=== PATIENT | male | born 1960 | race Caucasian/White ===

== ENCOUNTER 2018-05-15 09:58 | Day surgery (SDC) | payer BC ==
[2018-05-14 09:54] LABS: BASOPHILS % (AUTO) 0.5 % (0-1); EOSINOPHILS # (AUTO) 0.2 X10'3 (0-0.9); EOSINOPHILS % (AUTO) 2.7 % (0-6); HEMATOCRIT 46.9 % (42.0-52.0); HEMOGLOBIN 16.2 g/dl (14.0-17.9); LYMPHOCYTES # (AUTO) 2.2 X10'3 (1.1-4.8); MEAN CORPUSCULAR HEMOGLOBIN 30.8 PG (27.0-31.0); MEAN CORPUSCULAR HGB CONC 34.5 g/dL (33.0-36.5); MEAN CORPUSCULAR VOLUME 89.2 FL (78-98); MEAN PLATELET VOLUME 8.7 FL (7.4-10.4); MONOCYTES # (AUTO) 0.5 X10'3 (0-0.9); MONOCYTES % (AUTO) 6.5 % (2-12); NEUTROPHILS # (AUTO) 4.8 X10'3 (1.8-7.7); NEUTROPHILS % (AUTO) 62.3 % (42-75); PLATELET COUNT 250 X10'3 (140-440); RED BLOOD COUNT 5.26 X10'6 (4.70-6.10); RED CELL DISTRIBUTION WIDTH 13.2 % (11.5-14.5); WHITE BLOOD COUNT 7.7 X10'3 (4.5-11.0)
[2018-05-14 10:03] LABS: PARTIAL THROMBOPLASTIN TIME 27 SECONDS (22-32)
[2018-05-14 10:05] LABS: ALBUMIN 3.5 G/DL (3.4-5.0); ANION GAP 8 (8-16); BLOOD UREA NITROGEN 11 MG/DL (7-18); BUN/CREATININE RATIO 12.2 (5.4-32.0); CALCIUM 9.2 MG/DL (8.5-10.1); CHLORIDE 106 MMOL/L (99-107); GLUCOSE 100 MG/DL (70-104); POTASSIUM 4.1 MMOL/L (3.5-5.1); SODIUM 142 MMOL/L (135-145); eGFR 87 ML/MIN
[2018-05-15] VITALS (7 sets, daily range): BP systolic 106–152; BP diastolic 55–87
[~2018-05-15] VITALS: Ht 175.3 cm; Wt 119.2 kg
[2018-05-15] MEDS ORDERED: diphenhydrAMINE 25mg capsule PO PRN (10:20)
[2018-05-15] MEDS ORDERED: acetylcysteine 200 MG/ml 4ml vial PO PRN (10:20)
[2018-05-15] MEDS ORDERED: normal saline 1000ml 1,000 ML IV SCH (10:20)
[2018-05-15] MEDS ORDERED: CARV6.253 PO (10:32)
[2018-05-15] MEDS ORDERED: ISOS30TA6 PO (10:34)
[2018-05-15] MEDS ORDERED: ATOR20TA PO (10:35)
[2018-05-15] MEDS ORDERED: ASPI-1071 PO (10:36)
[2018-05-15] MEDS ORDERED: LIDOcaine/PRILOcaine 5gm cream TP ONE (11:30)
[2018-05-15] MEDS ORDERED: LORazepam 0.5 MG tablet PO PRN (11:30)
[2018-05-15] MEDS ORDERED: nitroGLYCERIN-Tridil 50MG/D5W 250 ML IV ONE (12:06)
[2018-05-15] MEDS ORDERED: verapamil 2.5 mg/ml inj IV ONE (12:06)
[2018-05-15] MEDS ORDERED: iohexol 350 MG/ML 50ML vial IV ONE ×2 (12:07→13:38)
[2018-05-15] MEDS ORDERED: iohexol 350MG/ML 100ml bottle IV ONE ×2 (12:07→13:01)
[2018-05-15] MEDS ORDERED: fentaNYL/PF 50MCG/1 ML 2ML syringe ONE (12:07)
[2018-05-15] MEDS ORDERED: heparin 1,000unit/ml 10ml vial 10 ML ONE ×2 (12:07→13:47)
[2018-05-15] MEDS ORDERED: midazolam 2 mg/2 ml injection ONE (12:07)
[2018-05-15] MEDS ORDERED: LIDOcaine 1% (10mg/ml)w/preservative injection 20ml MDV ONE (12:07)
[2018-05-15] MEDS ORDERED: heparin 25,000 UNIT/250ml bag 250 ML IV ONE (13:13)
[2018-05-15] MEDS ORDERED: atropine 0.1mg/ml 10ml syringe ONE (13:21)
[2018-05-15] MEDS ORDERED: clopidogrel 300mg tablet ONE (13:48)
[2018-05-15 14:36] LABS: ISTAT Hct MIX 42 %PCV (42-52); ISTAT O2 SATURATION MIX VENOUS 59 % (60-80); ISTAT SOURCE MIX
[2018-05-15 14:36] LABS: ISTAT HGB ART 14.6 g/dl (14.0-18.0); ISTAT Hct ART 43 %PCV (42-52); ISTAT O2 SATURATION ARTERIAL 91 % (95-98); ISTAT SOURCE ART
[2018-05-15] MEDS ORDERED: normal saline 1000ml 1,000 ML IV ONE (14:40)
[2018-05-15] MEDS: carvedilol 6.25mg tablet PO SCH (20:10)
[2018-05-15] MEDS ORDERED: atorvastatin 20mg tablet PO SCH (21:00)
[2018-05-16 03:00] VITALS: BP 144/86
[2018-05-16 06:00] VITALS: BP 143/85
--- NOTE | 2018-05-16 06:47 | NUR ---
Patient in room PCU 3010. I have received report from Suzanne TALLEY and had the opportunity to ask questions and assume patient care.
[2018-05-16] MEDS ORDERED: ATOR40TA PO (07:53)
[2018-05-16] MEDS ORDERED: CLOP75TA15 PO (07:53)
[2018-05-16] MEDS ORDERED: ASPI-1 PO (07:55)
[2018-05-16] MEDS ORDERED: clopidogrel 75mg tablet PO SCH (08:00)
[2018-05-16] MEDS ORDERED: isosorbide mononitrate 30mg tab.SR.24H PO SCH (08:00)
[2018-05-16] MEDS ORDERED: aspirin 325mg tablet PO SCH (08:30)
[2018-05-16] MEDS: carvedilol 6.25mg tablet PO SCH (08:45)
[2018-05-16 11:11] VITALS: BP 136/89
[2018-05-16] MEDS ORDERED: verapamil 2.5 mg/ml inj IV ONE (12:05)
[2018-05-16] MEDS ORDERED: nitroGLYCERIN-Tridil 50MG/D5W 250 ML IV ONE (12:05)
[2018-05-16] MEDS ORDERED: iohexol 350 MG/1 ML 200ml bottle ONE (12:05)
[2018-05-16] MEDS ORDERED: heparin 1,000unit/ml 10ml vial 10 ML ONE ×2 (12:05→14:12)
[2018-05-16] MEDS ORDERED: fentaNYL/PF 50MCG/1 ML 2ML syringe ONE (12:05)
[2018-05-16] MEDS ORDERED: midazolam 2 mg/2 ml injection ONE (12:05)
[2018-05-16] MEDS ORDERED: LIDOcaine 1% (10mg/ml)w/preservative injection 20ml MDV ONE (12:06)
--- NOTE | 2018-05-16 12:26 | NUR ---
construction craft laborer at the bedside to take the patient for angiogram
[2018-05-16] MEDS ORDERED: iohexol 350MG/ML 100ml bottle IV ONE (14:20)
[2018-05-16] MEDS ORDERED: clopidogrel 300mg tablet ONE (14:47)
[2018-05-16 15:15] VITALS: BP 136/73
[2018-05-16] MEDS ORDERED: HYDROcodone/acetaminophen 5mg/325mg tablet PO PRN (15:25)
[2018-05-16] MEDS ORDERED: normal saline 1000ml 1,000 ML IV SCH (15:25)
[2018-05-16] MEDS ORDERED: HYDROcodone/acetaminophen 10/325mg tab PO PRN (15:25)
--- NOTE | 2018-05-16 16:44 | NUR ---
removed radial cuff, no bleeding, applied dressing
--- NOTE | 2018-05-16 18:10 | NUR ---
Patient in room PCU 3010. I have received report from Donna TALLEY and had the opportunity to ask questions and assume patient care.
== END 2018-05-16 20:27 | disposition home or self-care (01) ==
LOC: SSTAY O 09:58 → PCU 3S 14:26 → SSTAY O 05-16 20:27
PROVIDERS: ATTEND Internal Medicine Cardiovascular Disease
DX: I25.119 Atherosclerotic heart disease of native coronary artery with unspecified angina pectoris (principal); I10 Essential (primary) hypertension; E78.5 Hyperlipidemia, unspecified; J44.9 Chronic obstructive pulmonary disease, unspecified; Z82.49 Family history of ischemic heart disease and other diseases of the circulatory system; F17.200 Nicotine dependence, unspecified, uncomplicated
CPT/HCPCS: 36415; 80048; 82803; 85014; 85025; 85347; 85610; 85730; 93005; 93460; 99152; 99153; A6257; C1874; C9600; J0461; J1644; J2001; J2250; J3010; J7030; Q0163; Q9967; A4620; C1725; C1769; C9601; G0378; J3490

== ENCOUNTER 2019-06-12 18:01 | Inpatient (IN) | payer BC ==
[~2019-06-12] VITALS: Ht 175.3 cm; Wt 110.0 kg
[~2019-06-12 18:01] MED LIST: ASPI-1 PO; ATOR40TA PO; CARV6.253 PO; CLOP75TA15 PO
[2019-06-12] MEDS ORDERED: diltiazem 5mg/ml 5ml inj. IV ONE ×2 (18:25→20:25)
[2019-06-12] MEDS ORDERED: enoxaparin 100mg/ml syringe SUBCUT ONE (18:25)
[2019-06-12] MEDS ORDERED: magnesium 2GM in 50ml NS 50 ML IV ONE (18:30)
[2019-06-12] MEDS ORDERED: normal saline 1000ML IV soln IVB ONE (18:30)
[2019-06-12 18:38] LABS: BASOPHILS # (AUTO) 0.1 X10'3 (0-0.2); BASOPHILS % (AUTO) 0.7 % (0-1); EOSINOPHILS # (AUTO) 0.2 X10'3 (0-0.9); EOSINOPHILS % (AUTO) 2.1 % (0-6); HEMATOCRIT 48.1 % (42.0-52.0); HEMOGLOBIN 16.3 g/dl (14.0-17.9); LYMPHOCYTES # (AUTO) 2.7 X10'3 (1.1-4.8); LYMPHOCYTES % (AUTO) 23.8 % (21-51); MEAN CORPUSCULAR HEMOGLOBIN 31.2 PG (27.0-31.0); MEAN CORPUSCULAR HGB CONC 33.8 g/dL (33.0-36.5); MEAN CORPUSCULAR VOLUME 92.4 FL (78-98); MEAN PLATELET VOLUME 9.1 FL (7.4-10.4); MONOCYTES # (AUTO) 0.8 X10'3 (0-0.9); MONOCYTES % (AUTO) 6.8 % (2-12); NEUTROPHILS # (AUTO) 7.4 X10'3 (1.8-7.7); NEUTROPHILS % (AUTO) 66.6 % (42-75); PLATELET COUNT 254 X10'3 (140-440); RED BLOOD COUNT 5.21 X10'6 (4.70-6.10); RED CELL DISTRIBUTION WIDTH 13.4 % (11.5-14.5); WHITE BLOOD COUNT 11.2 X10'3 (4.5-11.0)
[2019-06-12 18:54] LABS: D-DIMER 0.78 MG/L FEU (0-0.50)
[2019-06-12 18:58] LABS: ALANINE AMINOTRANSFERASE 86 U/L (12-78); ALBUMIN 3.5 G/DL (3.4-5.0); ALKALINE PHOSPHATASE 91 IU/L (46-116); ANION GAP 8 (8-16); ASPARTATE AMINO TRANSFERASE 26 U/L (10-37); BILIRUBIN,TOTAL 0.7 MG/DL (0.1-1.0); BLOOD UREA NITROGEN 10 MG/DL (7-18); BUN/CREATININE RATIO 10.1 (5.4-32.0); CALCIUM 8.6 MG/DL (8.5-10.1); CHLORIDE 108 MMOL/L (99-107); CREATININE 0.99 MG/DL (0.60-1.10); GLUCOSE 91 MG/DL (70-104); SODIUM 143 MMOL/L (135-145); TOTAL CARBON DIOXIDE 27.3 MMOL/L (24-32); TOTAL PROTEIN 7.1 G/DL (6.4-8.2); eGFR 77 ML/MIN
[2019-06-12] MEDS ORDERED: iohexol 350MG/ML 100ml bottle IV ONE (19:27)
[2019-06-12] MEDS ORDERED: diltiazem 30mg tablet PO ONE (20:25)
[2019-06-12] MEDS ORDERED: furosemide 10 MG/1 ML 10ml inj IV ONE (20:40)
[2019-06-12] MEDS ORDERED: SOTA80TA PO (20:54)
[2019-06-12] MEDS ORDERED: APIX5TAB3 PO (20:54)
[2019-06-12] MEDS ORDERED: mag hydrox/Alum hydrox/simeth 30ml oral suspension PO PRN (21:50)
[2019-06-12] MEDS ORDERED: potassium Cl 20 mEq SR tablet PO PRN ×2 (21:50)
[2019-06-12] MEDS ORDERED: ondansetron/PF 4mg/2ml inj IV PRN (21:50)
[2019-06-12] MEDS ORDERED: potassium CL 10mEq/100ml bag 100 ML IV PRN ×2 (21:50)
[2019-06-12] MEDS ORDERED: ipratropium/albuterol 3ml nebule NEB PRN (21:50)
[2019-06-12] MEDS ORDERED: magnesium 4gm in 100ml NS 100 ML IV PRN (21:50)
[2019-06-12] MEDS ORDERED: magnesium hydroxide 30ml (MOM) UD suspension PO PRN (21:50)
[2019-06-12] MEDS ORDERED: magnesium 2GM in 50ml NS 50 ML IV PRN (21:50)
[2019-06-12] MEDS ORDERED: magnesium Cl slow-release 64mg tablet PO PRN (21:50)
[2019-06-12] MEDS ORDERED: acetaminophen 325mg tablet PO PRN (21:50)
[2019-06-12] MEDS ORDERED: metoprolol tartrate 1mg/ml inj IV PRN (22:00)
--- NOTE | 2019-06-12 22:20 | NUR ---
I have received report from GERRI Toscano and had the opportunity to ask questions. Pt will be transferred to [id number].
--- NOTE | 2019-06-12 22:35 | NUR ---
Pt arrived in the unit via w/c, accompanied by a nurse. Personal belongings are with the pt. Pt a/o x 4, denied chest pain. Pt is ambulatory. Pt is placed on tele monitor # [id number]. MRSA nasal swab, physical assessment, 2-RN skin assessment, and DART are done.
[2019-06-12 22:40] VITALS: BP 139/98
[2019-06-13] MEDS: heparin, porcine 5000 units/ml vial SQ SCH ×2 (00:02→08:27)
[2019-06-13 02:00] VITALS: BP 142/84
[2019-06-13 06:00] VITALS: BP 140/96
[2019-06-13 06:19] LABS: BASOPHILS % (AUTO) 0.5 % (0-1); EOSINOPHILS # (AUTO) 0.2 X10'3 (0-0.9); EOSINOPHILS % (AUTO) 2.7 % (0-6); HEMATOCRIT 45.5 % (42.0-52.0); HEMOGLOBIN 15.7 g/dl (14.0-17.9); LYMPHOCYTES % (AUTO) 23.2 % (21-51); MEAN CORPUSCULAR HEMOGLOBIN 31.7 PG (27.0-31.0); MEAN CORPUSCULAR HGB CONC 34.5 g/dL (33.0-36.5); MEAN CORPUSCULAR VOLUME 91.9 FL (78-98); MEAN PLATELET VOLUME 9.1 FL (7.4-10.4); MONOCYTES # (AUTO) 0.8 X10'3 (0-0.9); MONOCYTES % (AUTO) 9.2 % (2-12); NEUTROPHILS # (AUTO) 5.6 X10'3 (1.8-7.7); NEUTROPHILS % (AUTO) 64.4 % (42-75); PLATELET COUNT 229 X10'3 (140-440); RED BLOOD COUNT 4.96 X10'6 (4.70-6.10); RED CELL DISTRIBUTION WIDTH 13.4 % (11.5-14.5); WHITE BLOOD COUNT 8.6 X10'3 (4.5-11.0)
--- NOTE | 2019-06-13 06:27 | NUR ---
Patient in room PCU 3028. I have received report from GERRI Ross and had the opportunity to ask questions and assume patient care.
[2019-06-13 06:29] LABS: ALANINE AMINOTRANSFERASE 68 U/L (12-78); ALBUMIN 3.4 G/DL (3.4-5.0); ALBUMIN/GLOBULIN RATIO 1.1 (1.1-1.5); ALKALINE PHOSPHATASE 87 IU/L (46-116); ANION GAP 6 (8-16); ASPARTATE AMINO TRANSFERASE 24 U/L (10-37); BILIRUBIN,TOTAL 1.2 MG/DL (0.1-1.0); BLOOD UREA NITROGEN 11 MG/DL (7-18); BUN/CREATININE RATIO 10.4 (5.4-32.0); CALCIUM 8.5 MG/DL (8.5-10.1); CHLORIDE 108 MMOL/L (99-107); CREATININE 1.06 MG/DL (0.60-1.10); GLUCOSE 93 MG/DL (70-104); POTASSIUM 3.9 MMOL/L (3.5-5.1); SODIUM 145 MMOL/L (135-145); TOTAL PROTEIN 6.6 G/DL (6.4-8.2); eGFR 72 ML/MIN
[2019-06-13 06:32] LABS: CHOL/HDL RATIO 5.8 (0.00-4.99); CHOLESTEROL 173 MG/DL (0-200); HDL CHOLESTEROL 30 MG/DL (35-60); LDL CHOLESTEROL 123 MG/DL (50-100); MAGNESIUM 2.4 MG/DL (1.5-2.4); TRIGLYCERIDES 126 MG/DL (20-135)
--- NOTE | 2019-06-13 06:35 | NUR ---
Problems reprioritized. Patient report given, questions answered & plan of care reviewed with GERRI Judd.
[2019-06-13] MEDS ORDERED: apixaban 5mg tablet PO SCH (08:00)
[2019-06-13] MEDS ORDERED: K and/or MAG REPLACEMENT MC SCH (08:00)
[2019-06-13] MEDS ORDERED: sotalol 80mg tablet PO SCH (08:00)
[2019-06-13] MEDS ORDERED: atorvastatin 20mg tablet PO SCH (08:00)
[2019-06-13 11:00] VITALS: BP 137/94
[2019-06-13] MEDS ORDERED: clopidogrel 300mg tablet PO ONE (14:55)
[2019-06-13 15:00] VITALS: BP 125/87
--- NOTE | 2019-06-13 15:07 | NUR ---
Received new orders from Dr Manley: Loading dose of Plavix 300mg PO once, Plavix 75mg PO QD, PBNP and 12 lead EKG for 06/14/19 in the morning, and stop Heparin Subcut.
--- NOTE | 2019-06-13 17:20 | NUR ---
Paged Dr Reeves PAGER ID: [phone] MESSAGE: Niko Andrea [id number] Pt wants to be discharged? Have you talked to Dr Manley? Thanks Binta Reynoso [phone]
--- NOTE | 2019-06-13 17:25 | NUR ---
Dr Reeves advised me to let the patient know he is not medically stable for discharge, and that he will be re evaluated tomorrow.
--- NOTE | 2019-06-13 17:55 | NUR ---
Patient was advised by myself that the doctors had not medically cleared him for discharge. Patient wanted to leave AMA after being advised. All belongings were collected and sent with patient. Tele monitor discontinued, telecommunications field technician notified. PIV discontinued, cannula intact. Walked patient out the front door, got into 's car. Dr Reeves was paged to be informed of patient leaving AMA.
--- NOTE | 2019-06-13 17:58 | NUR ---
Paged Dr Reeves PAGER ID: [phone] MESSAGE: Niko Andrea [id number] Pt left AMA, even after I advised him not to. Binta Reynoso [phone]
[2019-06-13] MEDS ORDERED: sacubitril/valsartan 24mg-26mg tablet PO SCH (20:00)
[2019-06-14] MEDS ORDERED: clopidogrel 75mg tablet PO SCH (08:00)
[2019-06-14] MEDS ORDERED: spironolactone 25 MG tablet PO SCH (08:30)
== END 2019-06-13 17:56 | disposition left against medical advice (07) | DRG 308 ==
LOC: ER 18:02 → ED HOLD 21:49 → PCU 3S 22:46
PROVIDERS: ADMIT Family Medicine; ATTEND Family Medicine
PROC: B32T1ZZ Computerized Tomography (CT Scan) of Left Pulmonary Artery using Low Osmolar Contrast (ICD-10-PCS; principal; 2019-06-12)
PROC: B3201ZZ Computerized Tomography (CT Scan) of Thoracic Aorta using Low Osmolar Contrast (ICD-10-PCS; 2019-06-12)
PROC: B32S1ZZ Computerized Tomography (CT Scan) of Right Pulmonary Artery using Low Osmolar Contrast (ICD-10-PCS; 2019-06-12)
DX: I48.91 Unspecified atrial fibrillation (principal); I50.23 Acute on chronic systolic (congestive) heart failure; I11.0 Hypertensive heart disease with heart failure; E66.9 Obesity, unspecified; I42.9 Cardiomyopathy, unspecified; E78.5 Hyperlipidemia, unspecified; F17.210 Nicotine dependence, cigarettes, uncomplicated; G47.33 Obstructive sleep apnea (adult) (pediatric); R00.0 Tachycardia, unspecified; Z53.29 Procedure and treatment not carried out because of patient's decision for other reasons; I25.10 Atherosclerotic heart disease of native coronary artery without angina pectoris; Z79.02 Long term (current) use of antithrombotics/antiplatelets; Z82.49 Family history of ischemic heart disease and other diseases of the circulatory system; Z95.5 Presence of coronary angioplasty implant and graft; Z79.899 Other long term (current) drug therapy; Z71.6 Tobacco abuse counseling; Z68.35 Body mass index [BMI] 35.0-35.9, adult
CPT/HCPCS: 36415; 71045; 71275; 80053; 80061; 83735; 83880; 84484; 85025; 85379; 87081; 93005; 93306; 94760; 96365; 96372; 96375; 96376; 97116; 97161; 99285; G0378; J1644; J1650; J1940; J3475; J3490; J7030; Q9967

== ENCOUNTER 2019-06-24 07:04 | Day surgery (SDC) | payer BC ==
[2019-06-23 12:58] LABS: BASOPHILS # (AUTO) 0.1 X10'3 (0-0.2); BASOPHILS % (AUTO) 0.6 % (0-1); EOSINOPHILS # (AUTO) 0.3 X10'3 (0-0.9); EOSINOPHILS % (AUTO) 3.4 % (0-6); HEMATOCRIT 48.4 % (42.0-52.0); HEMOGLOBIN 16.6 g/dl (14.0-17.9); LYMPHOCYTES # (AUTO) 2.2 X10'3 (1.1-4.8); LYMPHOCYTES % (AUTO) 25.9 % (21-51); MEAN CORPUSCULAR HEMOGLOBIN 31.5 PG (27.0-31.0); MEAN CORPUSCULAR HGB CONC 34.3 g/dL (33.0-36.5); MEAN CORPUSCULAR VOLUME 91.7 FL (78-98); MEAN PLATELET VOLUME 8.9 FL (7.4-10.4); MONOCYTES # (AUTO) 0.7 X10'3 (0-0.9); MONOCYTES % (AUTO) 8.9 % (2-12); NEUTROPHILS # (AUTO) 5.1 X10'3 (1.8-7.7); NEUTROPHILS % (AUTO) 61.2 % (42-75); PLATELET COUNT 274 X10'3 (140-440); RED BLOOD COUNT 5.28 X10'6 (4.70-6.10); RED CELL DISTRIBUTION WIDTH 13.4 % (11.5-14.5); WHITE BLOOD COUNT 8.3 X10'3 (4.5-11.0)
[2019-06-23 13:08] LABS: PARTIAL THROMBOPLASTIN TIME 25 SECONDS (22-32)
[2019-06-23 13:20] LABS: ALANINE AMINOTRANSFERASE 37 U/L (12-78); ALBUMIN 3.5 G/DL (3.4-5.0); ALBUMIN/GLOBULIN RATIO 1.1 (1.1-1.5); ALKALINE PHOSPHATASE 84 IU/L (46-116); ANION GAP 6 (8-16); ASPARTATE AMINO TRANSFERASE 19 U/L (10-37); BILIRUBIN,TOTAL 0.8 MG/DL (0.1-1.0); BLOOD UREA NITROGEN 12 MG/DL (7-18); CALCIUM 8.7 MG/DL (8.5-10.1); CHLORIDE 108 MMOL/L (99-107); CREATININE 1.09 MG/DL (0.60-1.10); GLUCOSE 105 MG/DL (70-104); POTASSIUM 4.5 MMOL/L (3.5-5.1); SODIUM 141 MMOL/L (135-145); TOTAL CARBON DIOXIDE 27.2 MMOL/L (24-32); TOTAL PROTEIN 6.7 G/DL (6.4-8.2); eGFR 69 ML/MIN
[2019-06-24] VITALS (17 sets, daily range): BP systolic 108–144; BP diastolic 70–103
[~2019-06-24] VITALS: Ht 175.3 cm; Wt 116.0 kg
[~2019-06-24 07:04] MED LIST changes: +APIX5TAB3 PO; -ASPI-1 PO; -CARV6.253 PO; -CLOP75TA15 PO; +SOTA80TA PO
[2019-06-24] MEDS ORDERED: normal saline 1,000 ML IV SCH ×2 (07:20→11:50)
[2019-06-24] MEDS ORDERED: LORazepam 0.5 MG tablet PO PRN (07:20)
[2019-06-24] MEDS ORDERED: diphenhydrAMINE 25mg capsule PO PRN (07:20)
[2019-06-24] MEDS ORDERED: LIDOcaine/PRILOcaine 5gm cream TP ONE (07:40)
[2019-06-24] MEDS ORDERED: CLOP75TA33 PO (08:52)
[2019-06-24] MEDS ORDERED: SPIR25TA5 PO (08:52)
[2019-06-24] MEDS ORDERED: OMEP20TA23 PO (08:52)
[2019-06-24] MEDS ORDERED: ATOR20TA66 PO (08:52)
[2019-06-24] MEDS ORDERED: verapamil 2.5 mg/ml inj IV ONE (09:29)
[2019-06-24] MEDS ORDERED: [UNRECOGNIZED DRUG - OTHER] IV ONE (09:29)
[2019-06-24] MEDS ORDERED: NITROGLYCERIN IV ONE (09:29)
[2019-06-24] MEDS ORDERED: fentaNYL/PF 50MCG/1 ML 2ML syringe ONE (09:29)
[2019-06-24] MEDS ORDERED: DEXTROSE IV ONE (09:29)
[2019-06-24] MEDS ORDERED: midazolam 2 mg/2 ml injection ONE (09:29)
[2019-06-24] MEDS ORDERED: heparin 1,000unit/ml 10ml vial 10 ML ONE (09:30)
[2019-06-24] MEDS ORDERED: iohexol 350 MG/ML 50ML vial IV ONE (09:30)
[2019-06-24] MEDS ORDERED: iohexol 350MG/ML 100ml bottle IV ONE (09:30)
[2019-06-24] MEDS ORDERED: LIDOcaine 1% (10mg/ml)w/preservative injection 20ml MDV ONE (09:30)
[2019-06-24] MEDS ORDERED: iohexol 350 MG/1 ML 200ml bottle ONE (10:32)
[2019-06-24] MEDS ORDERED: clopidogrel 300mg tablet ONE (10:59)
[2019-06-24] MEDS ORDERED: heparin 25,000 UNIT/250ml bag 250 ML IV SCH (11:50)
[2019-06-24] MEDS ORDERED: aspirin 81mg tab.chew PO ONE (11:55)
[2019-06-24] MEDS ORDERED: HYDROcodone/acetaminophen 10/325mg tab PO PRN (11:55)
[2019-06-24] MEDS ORDERED: ondansetron/PF 4mg/2ml inj IV PRN (11:55)
[2019-06-24] MEDS ORDERED: proCHLORperazine 10 MG/2 ml inj IV PRN (11:55)
[2019-06-24] MEDS ORDERED: nitroGLYCERIN 0.4mg SUBLingual tab SL PRN (11:55)
[2019-06-24] MEDS ORDERED: HYDROcodone/acetaminophen 5mg/325mg tablet PO PRN (11:55)
[2019-06-24] MEDS ORDERED: OXAZEpam 15mg capsule PO PRN (11:55)
[2019-06-25] MEDS ORDERED: aspirin 81mg tab.chew PO SCH (08:30)
== END 2019-06-24 17:50 | disposition home or self-care (01) ==
LOC: MED 3N 07:04 → U 07:04
PROVIDERS: ATTEND Internal Medicine Cardiovascular Disease
DX: R07.9 Chest pain, unspecified (principal); I25.10 Atherosclerotic heart disease of native coronary artery without angina pectoris; I48.91 Unspecified atrial fibrillation; I42.0 Dilated cardiomyopathy; I48.0 Paroxysmal atrial fibrillation; I10 Essential (primary) hypertension; E78.5 Hyperlipidemia, unspecified; Z79.899 Other long term (current) drug therapy; Z82.49 Family history of ischemic heart disease and other diseases of the circulatory system
CPT/HCPCS: 36415; 80053; 83880; 85025; 85347; 85610; 85730; 93005; 93458; 99152; 99153; C1725; C1769; C1874; C1894; C9600; C9601; J1644; J2001; J2250; J3010; J7030; Q0163; Q9967; A4620; A5120; C1751; J3490

== ENCOUNTER 2019-07-23 07:18 | Day surgery (SDC) | payer BC ==
[2019-07-22 14:09] LABS: BASOPHILS % (AUTO) 0.5 % (0-1); EOSINOPHILS # (AUTO) 0.3 X10'3 (0-0.9); EOSINOPHILS % (AUTO) 3.6 % (0-6); HEMATOCRIT 48.5 % (42.0-52.0); HEMOGLOBIN 16.4 g/dl (14.0-17.9); LYMPHOCYTES # (AUTO) 2.6 X10'3 (1.1-4.8); LYMPHOCYTES % (AUTO) 29.7 % (21-51); MEAN CORPUSCULAR HGB CONC 33.9 g/dL (33.0-36.5); MEAN CORPUSCULAR VOLUME 91.4 FL (78-98); MEAN PLATELET VOLUME 8.4 FL (7.4-10.4); MONOCYTES # (AUTO) 0.8 X10'3 (0-0.9); MONOCYTES % (AUTO) 9.1 % (2-12); NEUTROPHILS # (AUTO) 4.9 X10'3 (1.8-7.7); NEUTROPHILS % (AUTO) 57.1 % (42-75); PLATELET COUNT 249 X10'3 (140-440); RED BLOOD COUNT 5.31 X10'6 (4.70-6.10); RED CELL DISTRIBUTION WIDTH 13.6 % (11.5-14.5); WHITE BLOOD COUNT 8.6 X10'3 (4.5-11.0)
[2019-07-22 16:18] LABS: ALANINE AMINOTRANSFERASE 45 U/L (12-78); ALBUMIN 3.6 G/DL (3.4-5.0); ALBUMIN/GLOBULIN RATIO 1.1 (1.1-1.5); ALKALINE PHOSPHATASE 94 IU/L (46-116); ANION GAP 12 (8-16); ASPARTATE AMINO TRANSFERASE 17 U/L (10-37); BILIRUBIN,TOTAL 0.6 MG/DL (0.1-1.0); BLOOD UREA NITROGEN 10 MG/DL (7-18); BUN/CREATININE RATIO 10.1 (5.4-32.0); CHLORIDE 105 MMOL/L (99-107); CREATININE 0.99 MG/DL (0.60-1.10); GLUCOSE 143 MG/DL (70-104); POTASSIUM 3.8 MMOL/L (3.5-5.1); SODIUM 142 MMOL/L (135-145); TOTAL CARBON DIOXIDE 24.7 MMOL/L (24-32); eGFR 77 ML/MIN
[2019-07-23] VITALS (14 sets, daily range): BP systolic 93–127; BP diastolic 69–83
[~2019-07-23] VITALS: Ht 175.3 cm; Wt 113.8 kg
[~2019-07-23 07:18] MED LIST changes: +ATOR20TA66 PO; -ATOR40TA PO; +CLOP75TA33 PO; +OMEP20TA23 PO; +SPIR25TA5 PO
[2019-07-23] MEDS ORDERED: SACU1TAB (07:53)
[2019-07-23] MEDS ORDERED: ACET-1025 PO (07:53)
[2019-07-23] MEDS ORDERED: ASPI-611 PO (07:53)
[2019-07-23] MEDS ORDERED: UBID100C16 PO (07:53)
[2019-07-23] MEDS ORDERED: morphine 10mg/ml inj. IV ONE (08:30)
[2019-07-23] MEDS ORDERED: diphenhydrAMINE 25mg capsule PO ONE (08:30)
[2019-07-23] MEDS ORDERED: normal saline 1000ml 1,000 ML IV SCH (08:30)
[2019-07-23] MEDS ORDERED: LORazepam 0.5 MG tablet PO ONE (08:30)
[2019-07-23] MEDS ORDERED: MIDAZolam 1mg/ml 10ml vial IV ONE (08:30)
[2019-07-23] MEDS ORDERED: atropine 0.1mg/ml 10ml syringe IV ONE (08:30)
[2019-07-23] MEDS ORDERED: amiodarone in dextrose, iso-osm 150mg/100ml bag IV ONE (08:30)
== END 2019-07-23 11:30 | disposition home or self-care (01) ==
LOC: SSTAY O 07:18
PROVIDERS: ATTEND Internal Medicine Cardiovascular Disease
DX: I48.19 Other persistent atrial fibrillation (principal); N52.9 Male erectile dysfunction, unspecified; I42.0 Dilated cardiomyopathy; I10 Essential (primary) hypertension; E78.5 Hyperlipidemia, unspecified; F17.210 Nicotine dependence, cigarettes, uncomplicated; Z79.899 Other long term (current) drug therapy; Z95.5 Presence of coronary angioplasty implant and graft; Z79.82 Long term (current) use of aspirin
CPT/HCPCS: 36415; 80053; 85025; 85610; 85730; 92960; 93005; J2250; J2270; J7030; Q0163

== ENCOUNTER → 2020-09-14 | Outpatient (CLI) | payer BC ==
[~2020-09-14] VITALS: Ht 175.3 cm; Wt 108.9 kg
[~2020-09-14] MED LIST changes: +ACET-1025 PO; +ASPI-611 PO; -OMEP20TA23 PO; +SACU1TAB; +UBID100C16 PO; +albuterol 2.5 MG/3 ML nebule NEB ONE
[2020-09-14 07:29] LABS: TOTAL HEMOGLOBIN 15.4 G/dl (14.0-18.0)
== END | disposition home or self-care (01) ==
LOC: RT 07:04
PROVIDERS: ATTEND Internal Medicine Cardiovascular Disease
DX: M47.814 Spondylosis without myelopathy or radiculopathy, thoracic region (principal); R06.02 Shortness of breath; Z79.899 Other long term (current) drug therapy
CPT/HCPCS: 71046; 85018; 94060; 94727; 94729; 94760

== ENCOUNTER 2021-03-17 08:34 | Outpatient (CLI) | payer BC ==
[~2021-03-17] VITALS: Ht 175.3 cm; Wt 127.0 kg
[~2021-03-17 08:34] MED LIST changes: -albuterol 2.5 MG/3 ML nebule NEB ONE
[2021-03-17 09:09] LABS: TOTAL HEMOGLOBIN 15.6 G/dl (14.0-18.0)
[2021-03-17] MEDS ORDERED: albuterol 2.5 MG/3 ML nebule NEB PRN (09:40)
== END 2021-03-17 23:59 | disposition home or self-care (01) ==
LOC: RT 08:34
PROVIDERS: ATTEND Internal Medicine Cardiovascular Disease
DX: R94.2 Abnormal results of pulmonary function studies (principal); J98.11 Atelectasis; M47.814 Spondylosis without myelopathy or radiculopathy, thoracic region; Z79.899 Other long term (current) drug therapy
CPT/HCPCS: 71046; 85018; 94060; 94727; 94729; 94760

== ENCOUNTER 2022-02-24 12:24 | Emergency (ER) | payer BC ==
[~2022-02-24] VITALS: Ht 175.3 cm; Wt 120.0 kg
[2022-02-24 12:44] LABS: BASOPHILS % (AUTO) 0.4 % (0-1); EOSINOPHILS # (AUTO) 0.1 X10'3 (0-0.9); EOSINOPHILS % (AUTO) 1.6 % (0-6); HEMATOCRIT 42.6 % (42.0-52.0); HEMOGLOBIN 14.2 g/dl (14.0-17.9); LYMPHOCYTES # (AUTO) 2.1 X10'3 (1.1-4.8); LYMPHOCYTES % (AUTO) 22.6 % (21-51); MEAN CORPUSCULAR HEMOGLOBIN 29.8 PG (27.0-31.0); MEAN CORPUSCULAR HGB CONC 33.4 g/dL (33.0-36.5); MEAN CORPUSCULAR VOLUME 89.3 FL (78-98); MEAN PLATELET VOLUME 7.6 FL (7.4-10.4); MONOCYTES # (AUTO) 0.8 X10'3 (0-0.9); MONOCYTES % (AUTO) 8.6 % (2-12); NEUTROPHILS # (AUTO) 6.3 X10'3 (1.8-7.7); NEUTROPHILS % (AUTO) 66.8 % (42-75); PLATELET COUNT 398 X10'3 (140-440); RED BLOOD COUNT 4.77 X10'6 (4.70-6.10); WHITE BLOOD COUNT 9.4 X10'3 (4.5-11.0)
[2022-02-24 13:07] LABS: ALANINE AMINOTRANSFERASE 31 U/L (12-78); ALBUMIN 2.9 G/DL (3.4-5.0); ALBUMIN/GLOBULIN RATIO 0.6 (1.1-1.5); ALKALINE PHOSPHATASE 82 IU/L (46-116); ANION GAP 10 (8-16); ASPARTATE AMINO TRANSFERASE 20 U/L (10-37); BILIRUBIN,TOTAL 0.5 MG/DL (0.1-1.0); BLOOD UREA NITROGEN 9 MG/DL (7-18); BUN/CREATININE RATIO 9.7 (5.4-32.0); CHLORIDE 103 MMOL/L (99-107); CREATININE 0.93 MG/DL (0.60-1.10); GLUCOSE 109 MG/DL (70-104); POTASSIUM 3.7 MMOL/L (3.5-5.1); SODIUM 138 MMOL/L (135-145); TOTAL CARBON DIOXIDE 25.4 MMOL/L (24-32); TOTAL PROTEIN 7.5 G/DL (6.4-8.2); eGFR 82 ML/MIN
--- NOTE | 2022-02-24 15:33 | NUR ---
CHARGE NURSE NOTIFIED OF GENERAL ASSESSMENT FOR REVIEW.
[2022-02-24 16:15] VITALS: BP 137/72
== END 2022-02-24 16:17 | disposition home or self-care (01) ==
LOC: ER 12:25
DX: J06.9 Acute upper respiratory infection, unspecified (principal); R05.9 Cough, unspecified; R11.0 Nausea; R09.89 Other specified symptoms and signs involving the circulatory and respiratory systems; Z79.82 Long term (current) use of aspirin; Z79.899 Other long term (current) drug therapy
CPT/HCPCS: 36415; 71045; 80053; 83735; 83880; 84484; 85025; 87502; 87503; 93005; 99285

== ENCOUNTER 2022-06-20 14:25 | Outpatient (CLI) | payer BC | END 2022-06-20 23:59 | disposition home or self-care (01) | LOC: CARD DIAG 14:25 | PROVIDERS: ATTEND Internal Medicine Cardiovascular Disease | DX: I05.9 Rheumatic mitral valve disease, unspecified (principal); I42.0 Dilated cardiomyopathy | CPT/HCPCS: 93306 ==